=== PATIENT | male | born 1960 | race Caucasian/White ===

== ENCOUNTER 2022-08-17 13:48 | Emergency (ER) | payer OTHER ==
[~2022-08-17] VITALS: Ht 193 cm; Wt 129.3 kg
[2022-08-17 14:12] VITALS: BP_SYST 133
--- NOTE | 2022-08-17 14:20 | NUR ---
RECEIVED PT FROM KRISTI BYNUM. PT BIBS WITH C/O BEING COVID POSITIVE WITH SOB. PT IS AAOX3. ON R/A. SINUS TACH HR IN THE 100S. ABDOMEN SOFT, NONTENDER, NONDISTENDED. DENIES N/V/D/C. DISTAL PULSES NORMAL. SKIN WARM. PT STATES HE HAS A H/A. SIDERAILS UP X2.
[2022-08-17] MEDS ORDERED: NACL 0.9% 1,000 ML IV ONE (14:30)
[2022-08-17] MEDS ORDERED: ACETAMINOPHEN 325 MG TABLET PO ONE (14:30)
--- NOTE | 2022-08-17 14:30 | NUR ---
DR. CUENCA AT BEDSIDE TO ASSESS PT.
--- NOTE | 2022-08-17 14:40 | NUR ---
CXR AND LABS COMPLETED.
[2022-08-17 15:07] LABS: BASOPHILS % (AUTO) 0.5 % (0.0-2.0); EOSINOPHILS % (AUTO) 0.8 % (0.0-4.0); HEMATOCRIT 39.3 % (36-54); HEMOGLOBIN 13.5 g/dL (14.0-18.0); LYMPHOCYTES # (AUTO) 1.2 K/uL (1.0-5.5); LYMPHOCYTES % (AUTO) 19.9 % (20.5-51.5); MEAN CORPUSCULAR HEMOGLOBIN 29 pg (27-31); MEAN CORPUSCULAR HGB CONC 34 % (32-36); MEAN CORPUSCULAR VOLUME 84 fL (79.0-98.0); MONOCYTES # (AUTO) 0.7 K/uL (0.0-1.0); MONOCYTES % (AUTO) 11.1 % (1.7-9.3); NEUTROPHILS % (AUTO) 67.7 % (40.0-70.0); PLATELET COUNT (AUTO) 156 K/uL (130-430); RED BLOOD CELL COUNT(AUTO) 4.66 MIL/uL (4.2-6.2); RED CELL DISTRIBUTION WIDTH 13.3 % (9.0-15.0)
[2022-08-17 15:23] LABS: ANION GAP 9 (5-15); CALCIUM 9.1 mg/dL (8.4-11.0); CHLORIDE 97 mmol/L (98-107); CREATININE 1.65 mg/dL (0.55-1.30); GLUCOSE 344 mg/dL (70-99); UREA NITROGEN, BLOOD 22 mg/dL (8-21)
[2022-08-17 15:30] LABS: GFR AFRICAN AMERICAN 55 mL/min (>90)
[2022-08-17 15:40] LABS: ALANINE AMINOTRANSFERASE 38 U/L (12-78); ALBUMIN 3.6 g/dL (3.4-4.8); ASPARTATE AMINOTRANSFERASE 30 U/L (10-37); TOTAL BILIRUBIN 0.6 mg/dL (0.0-1.0)
[2022-08-17] MEDS ORDERED: NIRM1TAB5 PO (16:19)
[2022-08-17 16:36] VITALS: BP_SYST 125
--- NOTE | 2022-08-17 16:37 | NUR ---
Patient given written and verbal discharge instructions and verbalizes understanding. ER MD discussed with patient the results and treatment provided. Patient in stable condition. ID arm band removed. IV catheter removed intact and dressing applied, no active bleeding. Rx of PAXLOVID given. Patient educated on pain management and to follow up with PMD. Pain Scale 0/10. Opportunity for questions provided and answered. Medication side effect fact sheet provided.
== END 2022-08-17 16:37 | disposition home or self-care (01) ==
LOC: SED 13:48
DX: U07.1 COVID-19 (principal); N28.9 Disorder of kidney and ureter, unspecified; B34.9 Viral infection, unspecified; R05.9 Cough, unspecified; R50.9 Fever, unspecified; M79.10 Myalgia, unspecified site; E11.9 Type 2 diabetes mellitus without complications; I10 Essential (primary) hypertension; E78.5 Hyperlipidemia, unspecified; Z79.899 Other long term (current) drug therapy
CPT/HCPCS: 99285; 96360; 71045; 80053; 83880; 85025; 84484; 36415; 93005; J7030